=== PATIENT | female | born 1965 | race Hispanic/Latino ===

== ENCOUNTER → 2024-09-29 | Outpatient (REF) | payer BC, MEDICARE ==
[~2024-09-29] MED LIST: Z.0.CRESTOR5 MG PO; Z.0.ZOLOFT25 MG PO; [UNRECOGNIZED DRUG - OTHER] PO
== END ==
LOC: MRI 09:47
PROVIDERS: ATTEND Radiology Neuroradiology
DX: G35 Multiple sclerosis (principal)
CPT/HCPCS: 70551